=== PATIENT | male | born 1975 | race Caucasian/White ===

== ENCOUNTER 2021-10-18 21:06 | Emergency (ER) | payer SELFPAY ==
[2021-10-18 21:11] VITALS: BP 147/88; PULSE 127; RESP 28; TEMP 36; O2SAT 96
--- NOTE | 2021-10-18 21:15 | DI.RAD_ITS ---
Exam(s) XR FOOT RT COMPLETE EXAM: XR FOOT RT COMPLETE CLINICAL HISTORY: Foot Injury, R/O Fracture. TECHNIQUE: 2D digital imaging was performed. COMPARISON: No exams were available for comparison FINDINGS: 3 views There is some dorsal soft tissue swelling. There are no fractures nor diastasis of the Lisfranc join t. No osseous lesions. No erosions. No radiopaque foreign body. IMPRESSION: No significant findings. DATA REPOSITORY: RADIATION DOSE DELIVERED:
--- NOTE | 2021-10-18 21:32 | ED.GENADUL_ITS ---
Discharge Plan Disposition Patient Disposition: HOME Condition: Stable Discharge Details Clinical Impression: Right foot sprain, Contusion Primary Care Provider: Unknown,Unknown ED Provider: Dena Walsh Home Meds and New Rx's Prescriptions: No Action No Known Home Meds Discharge Instructions Instructions: Contusion in Adults (ED), Foot Sprain (ED) Additional Instructions: At this time there is no evidence for broken bones or fractures on the x-rays. I do suspect that you bruised your foot and or sprained it. Please use the postop shoe, crutches and an Roger wrap as tolerated. Weightbearing advance as tolerated. Rest, ice, compression, elevation while sitting or lying down. Please take Tylenol or Ibuprofen with food every 4-6 hours as needed for pain a nd swelling. Discharge Data Discharge Date/Time-TO BE ENTERED AT DEPARTURE: 10/18/21 22:14 Medical Decision Making Ice pack given by balance staff inspector, x-ray foot ordered ibuprofen 600 mg p.o. Imaging protocol: Radiologic exam of the Right foot. Views: 3 or more views. COMPARISON: No relevant prior studies available. FINDINGS: Bones/joints: Normal. Soft tissues: Soft tissue swelling in distal foot. IMPRESSION: Soft tissue swelling. Patient given postop shoe, Roger wrap patient presents with his own crutches. D iscussed home care RICE procedures. Verbalized understanding. HPI General Mode of arrival: wheelchair . Date/Time Provider Initiated Documentation: 10/18/21 21:22 . Limitations to Documentation: no limitations and other . Information obtained by: patient, family and RN notes reviewed . HPI Narrative: 45-year-old male presents to the ER with chief complaint of right foot pain status post kicking a exercise bike prior to arrival. He does have some dorsal midfoot swelling and ecchymosis noted. Distal cap refill less than 2 seconds. No tenderness with palpation of the ankle or distal tib-fib. He does appear very anxious on initial exam. He does endorse drinking alcohol prior to arrival did not take any Tylenol or ibuprofen. Past medical history includes bipolar, PTSD. Related Data Home Medications Medication Instructions Recorded Confirmed Unknown [No Known Home Meds] 10/18/21 10/18/21 Allergies Allergy/AdvReac Type Severity Reaction Status Date / Time No Known Allergies Allergy Unverified 10/18/21 21:13 General Stated Complaint: Orthopedic ALEXA: 4 Review of Systems Musculoskeletal Musculoskeletal: Reports as per HPI, Reports arthralgias and Reports joint swelling Psychiatric Psychiatric: Reports anxiety PFSH All Active Problems (Updated 10/18/21 @ 22:01 by Dena Walsh NP) Right foot sprain (Acute) Contusion (Acute) Medical History Bipolar 1 disorder PTSD (post-traumatic stress disorder) Social History Smoking/Tobacco Use Status: Never Smoking risk assessment performed?: Yes Alcohol Intake: current Alcohol Intake frequency: a few times a month Alcohol type: hard liquor Substance use type: does not use Do you feel safe at home: Yes Do you feel safe in your relationship?: Yes Exam Extrem Right lower extremity: ankle Details: normal to inspection; no tenderness and no swelling and foot Details: abnormal to inspection (Dorsal swelling to mid-foot, ) and tenderness Location: of the dorsal foot and of the mid foot Ankle/foot/toe images: 1. Dorsal swelling and ecchymosis noted tenderness with palpation no obvious deformity distal cap refill less than 2 sec. CMS intact. No tenderness with palpation to the ankle or distal tib-fib or knee. Course Vital Signs Vital signs: Vital Signs Temperature 36.0 C L 10/18/21 21:11 Pulse 127 H 10/18/21 21:11 Respiratory Rate 28 H 10/18/21 21:11 Blood Pressure 147/88 H 10/18/21 21:11 Pulse Oximetry 96 10/18/21 21:11 Temperature 36.0 C L 10/18/21 21:11 Temperature Source Skin 10/18/21 21:11 Pulse 127 H 10/18/21 21:11 Respiratory Rate 28 H 10/18/21 21:11 Respiratory Effort Non-Labored 10/18/21 21:14 Blood Pressure 147/88 H 10/18/21 21:11 Pulse Oximetry 96 10/18/21 21:11 Pain Level 8 10/18/21 21:11 PAWSS Have you Been Recently Intoxicated or Drunk Within the Last 30 days?: No Have you Ever Experienced Previous Episodes of Alcohol Withdrawal?: No Have you ever Experienced Withdrawal Seizures?: No Have you ever Experienced Delirium Tremens(DT)s?: No Have you ever undergone Alcohol Rehabilitation Treatment (i.e, inpt ot outpatient treatment programs)?: No Have you ever Experienced Blackouts?: No Have you ever Combined Alcohol with other Downers within the last 90 days?: No Have you ever Combined Alcohol with any other Substance of Abuse during the last 90 days?: No Positive Blood Alcohol level on Presentation? [PCS.BAL]: No Evidence of Increased Autonomic Activity (i.e. HR>120, tremor, sweating, agitation, nausea)?: No Result: 0
[2021-10-18] MEDS: Ibuprofen 600 MG TAB PO (21:38)
--- NOTE | 2021-10-18 21:57 | DI.VRAD_ITS ---
PROCEDURE INFORMATION: Exam: XR Right Foot Exam date and time: 10/18/2021 9:40 PM Age: 45 years old Clinical indication: Other: Foot injury, R/O FX TECHNIQUE: Imaging protocol: Radiologic exam of the Right foot. Views: 3 or more views. COMPARISON: No relevant prior studies available. FINDINGS: Bones/joints: Normal. Soft tissues: Soft tissue swelling in distal foot. IMPRESSION: Soft tissue swelling. Dictated and Authenticated by: Raymond De La Rosa MD. Ordering:GREGORY Fernandes MD
[2021-10-18 22:13] VITALS: PULSE 111; RESP 20; O2SAT 98
== END 2021-10-18 22:14 | disposition home or self-care (01) ==
PROVIDERS: Emergency Provider Registered Nurse Emergency
DX: S93.601A Unspecified sprain of right foot, initial encounter (principal); W22.09XA Striking against other stationary object, initial encounter
CPT/HCPCS: 99283; 73630

== ENCOUNTER 2023-10-01 13:48 | Emergency (ER) | payer MEDICAID, SELFPAY ==
[2023-10-01 14:07] VITALS: BP 142/86; PULSE 88; RESP 18; TEMP 37.2; O2SAT 99
--- NOTE | 2023-10-01 16:21 | ED.GENADUL_ITS ---
Discharge Plan Disposition Patient Disposition: Home Condition: Stable Discharge Details Clinical Impression: Rash of finger Primary Care Provider: Unknown,Unknown ED Provider: Indiana Oakley Home Meds and New Rx's Prescriptions: New cephalexin 500 mg capsule 500 mg PO QID Qty: 20 0RF Discharge Instructions Instructions: Skin Rash ED Additional Instructions: Drink at least 6 to 8 glasses of water daily to stay well-hydrated Keep finger clean and dry wash daily with warm soapy water rinse completely pat dry gently can apply thin layer of bacitracin ointment and dry dressing to protect Take antibiotics as prescribed even if you feel better See your primary care provider I Referrals: Unknown,Unknown [Primary Care Provider] - (Establish with primary care provider for chronic disease evaluation and management) HPI General Mode of arrival: ambulatory . Date/Time Provider Initiated Documentation: 10/01/23 15:17 . Limitations to Documentation: no limitations . Information obtained by: patient . HPI Narrative: This is a 47-year-old male patient past medical history significant for bipolar disorder presents to the emergency department for complaints of right ring finger rash/swelling/pain. He denies any fever or signs of systemic illness. He denies any trauma to the area. He has tried multiple remedies including hydrogen peroxide, antibiotic ointment, with no improvement in his symptoms. He denies any similar history. Also during intake he reports that intermittently he has noted blood in his stool but not recently and that occasionally he gets headaches that start at the base of his head and wraps around but no headache currently. He denies any chest pain shortness of breath and dizziness nausea vomiting or diarrhea. He states he has been eating and drinking normally Related Data Home Medications Medication Instructions Recorded Confirmed cephalexin 500 mg capsule 500 mg PO QID #20 caps 10/01/23 Previous Rx's Medication Instructions Recorded cephalexin 500 mg capsule 500 mg PO QID #20 caps 10/01/23 Allergies Allergy/AdvReac Type Severity Reaction Status Date / Time No Known Allergies Allergy Unverified 10/01/23 14:10 General Stated Complaint: GenMedical ALEXA: 3 Review of Systems Narrative: 10 point review of systems all negative except positives per HPI Exam Narrative Exam Narrative: Anxious appearing gentleman of stated age in no acute distress he is thin skin is pink warm dry well-perfused head is atraumatic eyes nonicteric noninjected EOMs intact oral mucosas moist neck with full range of motion no JVD cardiovascular regular rate and rhythm respirations are even and unlabored abdomen is benign he moves all extremities he has got no peripheral edema dorsal aspect of his right ring finger with excoriation most consistent with a contact dermatitis/it extends from the base of his finger to his DIP joint. He has full range of motion of his finger full strength palmar aspect of his finger is u nremarkable. Sensation is intact distally. Good CSM T's distally Course Vital Signs Vital signs: Vital Signs Temperature 37.2 C 10/01/23 14:07 Pulse 88 10/01/23 14:07 Respiratory Rate 18 10/01/23 14:07 Blood Pressure 142/86 H 10/01/23 14:07 Pulse Oximetry 99 10/01/23 14:07 Temperature 37.2 C 10/01/23 14:07 Temperature Source Temporal Artery Scan 10/01/23 14:07 Pulse 88 10/01/23 14:07 Respiratory Rate 18 10/01/23 14:07 Blood Pressure 142/86 H 10/01/23 14:07 Blood Pressure Position Sitting 10/01/23 14:07 Pulse Oximetry 99 10/01/23 14:07 Oxygen Delivery Method Room Air 10/01/23 14:07 Oxygen Flow Rate 0 10/01/23 14:07 Medical Decision Making Is a 47-year-old male patient who comes in with various complaints but active complaint is excoriation to his right ring finger. Physical exam appears more like a contact dermatitis than a cellulitis but he does have some open areas that he is picking at and I am concerned that it may become infected. I did ask him to stop applying different remedies to the finger as this could be worsening the irritation. We will apply thin layer of antibiotic ointment and dry dressing to protect. I will give him a short course of cephalexin. Tetanus will be updated Patient currently denies any blood in his stool his vital signs are stable with a pulse in the 80s and systolic blood pressure 142 he reports of dizziness or positional. No further evaluation warranted at this time patient to follow-up with primary care provider for further recommendations Patient also currently denies headache at this time. No further evaluation warranted at this time Medical Records Medical records reviewed: Yes I reviewed the patient's medical records. Quality:SDOH Health Related Social Needs: No Data to Display PFSH All Active Problems (Updated 10/01/23 @ 16:28 by Indiana Oakley NP) Rash of finger (Acute) Medical History Bipolar 1 disorder PTSD (post-traumatic stress disorder) Social History Smoking/Tobacco Use Status: Never Smoking risk assessment performed?: Yes Alcohol Intake: current Alcohol Intake frequency: a few times a month Alcohol type: hard liquor Substance use type: does not use Do you feel safe at home: Yes Do you feel safe in your relationship?: Yes
[2023-10-01 16:50] VITALS: BP 142/86; PULSE 88; RESP 18; RESP 20; TEMP 37.2; O2SAT 99
[2023-10-01 16:51] VITALS: BP 142/86; PULSE 88; RESP 20; TEMP 37.2; O2SAT 99
== END 2023-10-01 16:39 | disposition home or self-care (01) ==
PROVIDERS: Emergency Provider Nurse Practitioner Acute Care
DX: R21 Rash and other nonspecific skin eruption (principal); R51.9 Headache, unspecified
CPT/HCPCS: 90471; 90715; 99284; 99283

== ENCOUNTER 2023-12-15 17:41 | Emergency (ER) | payer MEDICAID, SELFPAY ==
[2023-12-15] VITALS (16 sets, daily range): BP systolic 135–147; BP diastolic 83–98; PULSE 63–91; RESP 15–25; TEMP 36.2–36.8; O2SAT 96–99
[2023-12-15 18:31] LABS: Abs Immature Grans 0.06 10^3/uL (0.0-0.06); Absolute Basophil Count 0.08 10^3/uL (0.0-0.2); Basophils % 0.5 %; Eosinophils % 0.9 %; HCT 48.7 % (40.0-50.0); HGB 16.6 g/dL (13.5-17.5); Immature Grans % 0.4 %; Lymphocytes % 13.8 %; MCHC 34.1 % (32.0-36.0); MCV 94 fL (80-95); MPV 9.6 fL (8.0-11.0); Monocytes % 3.5 %; Neutrophils % 80.9 %; Platelet Count 361 10^3/uL (130-400); RBC 5.19 10^6/uL (4.36-5.78); RDW 12.7 % (11.8-14.1); RDW-SD 43.9 fL; WBC 15.92 10^3/uL (4.4-10.8)
[2023-12-15] MEDS: Famotidine 20 MG/2 ML VIAL IVP (18:31)
[2023-12-15] MEDS: Ondansetron 4 MG/2 ML VIAL IVP (18:31)
[2023-12-15] MEDS: Normal Saline 1,000 ML 1000 ML IV (18:31)
[2023-12-15 18:32] LABS: Absolute Eosinophil Count 0.14 10^3/uL (0.0-0.7); Absolute Monocyte Count 0.56 10^3/uL (0.1-0.8); Absolute Neutrophil Count 12.88 10^3/uL (1.2-6.7)
[2023-12-15 18:46] LABS: ALT 23 U/L (16-63); AST 21 U/L (15-37); Albumin 4.9 g/dL (3.4-5.0); Alkaline Phosphatase 88 U/L (46-116); Anion Gap 11.8 mmol/L (3-11); BUN 18 mg/dL (7-18); Bilirubin, Total 0.39 mg/dL (0.2-1.0); CO2 25.2 mmol/L (21.0-32.0); CREATININE 1.1 mg/dL (0.70-1.30); Calcium 9.8 mg/dL (8.5-10.1); Chloride 104 mmol/L (98-107); Estimated GFR 82.29 (mL/min/1.73m2); Glucose 92 mg/dL (74-106); Lipase 26 U/L (16-77); Potassium 4.1 mmol/L (3.5-5.1); Sodium 141 mmol/L (136-145); Total Protein 8.2 g/dL (6.4-8.2)
--- NOTE | 2023-12-15 19:08 | ED.GENADUL_ITS ---
Discharge Plan Disposition Patient Disposition: Home Condition: Improving Discharge Details Clinical Impression: Gastritis Primary Care Provider: Unknown,Unknown ED Provider: Yoshi Infante Home Meds and New Rx's Prescriptions: New pantoprazole 40 mg tablet,delayed release (DR/EC) 40 mg PO DAILY 15 Days Qty: 15 0RF Discharge Instructions Instructions: Gastritis Additional Instructions: Please follow-up with your primary care physician and discuss need for follow-up with licensed marriage and family therapist to consider endoscopy and H. pylori testing. Zantac/ranitidine has been taken off the market therefore we will start you on a prescription of pantoprazole. HPI General Date/Time Provider Initiated Documentation: 12/15/23 17:44 . HPI Narrative: 47-year-old male presents with nausea and dry heaving in the setting of taking a couple shots of peppermint schnapps. Denies chest pain or shortness of breath. Denies history of pancreatitis. Also has a couple lesions on his skin with some purulent discharge superficially on his wrist and his left shoulder. Related Data Home Medications ?Medication ?Instructions ?Recorded ?Confirmed pantoprazole 40 mg tablet,delayed 40 mg PO DAILY 15 days #15 tabs 12/15/23 release Previous Rx's ?Medication ?Instructions ?Recorded pantoprazole 40 mg tablet,delayed 40 mg PO DAILY 15 days #15 tabs 12/15/23 release Allergies Allergy/AdvReac Type Severity Reaction Status Date / Time No Known Allergies Allergy Unverified 12/15/23 18:10 General Stated Complaint: Nausea/Vomit/Diar ALEXA: 3 Exam Narrative Exam Narrative: Alert oriented interactive Moist mucous membranes tongue secretions normal voice Speaking full sentences no respiratory distress Abdomen soft nontender nondistended Moving all extremities without deficits Shallow-based ulcer subacute appearing to right wrist volar aspect 1 cm in diameter with some purulent material at base nonfluctuant, no crepitus no lymphangitic streaking Warm well-perfused extremities soft compartments sensate Course Vital Signs Vital signs: Vital Signs Temperature 36.8 C 12/15/23 17:45 Pulse 68 12/15/23 17:45 Respiratory Rate 18 12/15/23 17:45 Pulse Oximetry 97 12/15/23 17:45 Temperature 36.2 C L 12/15/23 18:28 Temperature Source Temporal Artery Scan 12/15/23 18:28 Pulse 91 H 12/15/23 18:28 Respiratory Rate 18 12/15/23 18:28 Respiratory Effort Normal, Non-Labored 12/15/23 18:28 Blood Pressure Position Sitting 12/15/23 17:45 Pulse Oximetry 97 12/15/23 17:45 Oxygen Delivery Method Room Air 12/15/23 17:45 Oxygen Flow Rate 96 12/15/23 18:28 Pain Level 6 12/15/23 18:28 Lab/Test Results Lab/Test Results: Laboratory Tests Range/Units 12/15/23 18:24 WBC (4.4-10.8) 10^3/uL 15.92 H RBC (4.36-5.78) 10^6/uL 5.19 Hgb (13.5-17.5) g/dL 16.6 Hct (40.0-50.0) % 48.7 MCV (80-95) fL 94 MCH (27.0-33.0) pg 32.0 MCHC (32.0-36.0) % 34.1 RDW (11.8-14.1) % 12.7 Plt Count (130-400) 10^3/uL 361 MPV (8.0-11.0) fL 9.6 Immature Gran % % 0.4 Neutrophils % % 80.9 Lymphocytes % % 13.8 Monocytes % % 3.5 Eosinophils % % 0.9 Basophils % % 0.5 Nucleated RBC % (0.0-0.3) % 0.0 Absolute Neutrophils (1.2-6.7) 10^3/uL 12.88 H Absolute Lymphocytes (1.2-3.4) 10^3/uL 2.20 Absolute Monocytes (0.1-0.8) 10^3/uL 0.56 Absolute Eosinophils (0.0-0.7) 10^3/uL 0.14 Absolute Basophils (0.0-0.2) 10^3/uL 0.08 Sodium (136-145) mmol/L 141 Potassium (3.5-5.1) mmol/L 4.1 Chloride (98-107) mmol/L 104 Carbon Dioxide (21.0-32.0) mmol/L 25.2 Anion Gap (3-11) mmol/L 11.8 H BUN (7-18) mg/dL 18 Creatinine (0.70-1.30) mg/dL 1.1 Est GFR (CKD-EPI 2020) (mL/min/1.73m2) 82.29 Glucose (74-106) mg/dL 92 Calcium (8.5-10.1) mg/dL 9.8 Total Bilirubin (0.2-1.0) mg/dL 0.39 AST (15-37) U/L 21 ALT (16-63) U/L 23 Alkaline Phosphatase (46-116) U/L 88 Total Protein (6.4-8.2) g/dL 8.2 Albumin (3.4-5.0) g/dL 4.9 Lipase (16-77) U/L 26 Medical Decision Making 47-year-old male presents with nausea and dry heaving in the setting of taking a couple shots of peppermint schnapps. Denies chest pain or shortness of breath. Denies history of pancreatitis. Also has a couple lesions on his skin with some purulent discharge superficially on his wrist and his left shoulder. Hemodynamically stable afebrile nontoxic nonperitoneal dry heaving without actual vomiting; Shallow-based ulcer subacute appearing to right wrist volar aspect 1 cm in diameter with some purulent material at base nonfluctuant, no crepitus no lymphangitic streaking, a similar smaller lesion on his left shoulder nonpurulent. Consider gastritis versus early pancreatitis lower suspicion for cholecystitis or biliary colic low suspicion for atypical ACS aortic pathology or PE low suspicion for bowel obstruction enteritis or colitis. Superficial skin infection no evidence of abscess or necrotizing infection. Will administer GI cocktail including Mylanta viscous lidocaine famotidine Zof ran fluids basic labs lipase, will likely start patient on oral antibiotics once GI symptoms have improved 21: 01 resting more comfortably after medication. Labs and imaging unremarkable. Likely gastritis versus esophagitis. Discussed with patient the need for him to follow-up closely with primary care and possible GI specialist for endoscopy or H. pylori testing. Patient endorses that ranitidine has helped him in the past. However ranitidine has been removed from the market. Will initiate pantoprazole. Quality:SDOH Health Related Social Needs: No Data to Display PFSH All Active Problems (Updated 12/15/23 @ 21:02 by Yoshi Infante MD) Gastritis (Acute) Medical History Bipolar 1 disorder PTSD (post-traumatic stress disorder) Social History Smoking/Tobacco Use Status: Never Smoking risk assessment performed?: Yes Alcohol Intake: current Alcohol Intake frequency: a few times a month Alcohol type: hard liquor Substance use type: does not use and former substance user Details: quit 4 years ago cold turkey Housing: apartment Do you feel safe at home: Yes Do you feel safe in your relationship?: Yes
--- NOTE | 2023-12-15 19:45 | DI.CT_ITS ---
Exam(s) CT ABDOMEN PELVIS W EXAM: CT ABDOMEN PELVIS W CLINICAL HISTORY: abd pain, nause vomiting. TECHNIQUE: Imaging Protocol: Axial computed tomography images with coronal and sagittal reformatted images were created and reviewed CONTRAST MATERIAL: Intravenous: Omnipaque-350 100cc Oral: None COMPARISON: No exams were available for comparison FINDINGS: VISUALIZED LUNG BASES: There is a partially included 8 mm nodule in the left lung base-left lower lob e. No pleural effusions.. ABDOMEN: There is no ascites. LIVER: There are no focal hepatic lesions evident. No dilated intrahepatic ducts. GALLBLADDER/BILIARY: No obvious gallbladder pathology. CBD is not dilated. PANCREAS: No evidence of pancreatic mass nor dilatation of the pancreatic duct. SPLEEN: Spleen is not enlarged. No obvious intrasplenic lesions. Splenic and portal veins are paten t. ADRENALS: There are no significant adrenal masses. KIDNEYS:No cysts evident. No solid renal masses. No calculi nor hydronephrosis.. ABDOMINAL AORTA: Abdominal aorta is not enlarged. LYMPH NODES:There is no retroperitoneal nor paraaortic adenopathy. ABDOMINAL WALL: No evidence of significant anterior abdominal wall nor inguinal hernia. GI: There is no evidence of bowel obstruction, free air, nor abscess. PELVIS: GI: No evidence of appendicitis.No evidence of sigmoid diverticulitis. LYMPH NODES: There is no intrapelvic nor inguinal adenopathy. REPRODUCTIVE: Prostate size upper normal. Seminal vesicles unremarkable. URINARY BLADDER: No calculi nor obvious masses evident OSSEOUS: No fractures and no significant osseous lesions. There are bilateral pars defects at L5. No associated listhesis nor disc space narrowing. IMPRESSION: 1. No acute findings in the abdomen and pelvis. 2. Bilateral spondylolysis at L5 without evidence of spondylolisthesis nor disc space narrowing. 3. There is a partially included nodule noted in the left lung lower lobe measuring 8 mm (image 1). No pleural effusions. RADIATION DOSE DELIVERED: 205.07mGy.cm Total DLP DATA REPOSITORY: All CT scans at this facility are submitted to the National Radiology Data Registry (NRDR) Dose Index Registry (DIR) with the [employer] (A[employer]). RADIATION OPTIMIZATION: All CT scans at this facility use at least one of these dose optimization te chniques: automated exposure control; mA and/or kV adjustment per patient size (includes targeted exa ms where dose is matched to clinical indication); or iterative reconstruction.
[2023-12-15] MEDS: Normal Saline - Diluent 50 ML VIAL IJ (19:56)
[2023-12-15] MEDS: Omnipaque 350 MG/ML 100 ML BTL 80 ML IJ (19:57)
--- NOTE | 2023-12-15 20:37 | DI.VRAD_ITS ---
PROCEDURE INFORMATION: Exam: CT Abdomen And Pelvis With Contrast Exam date and time: 12/15/2023 8:02 PM Age: 47 years old Clinical indication: Nausea and vomiting; Abdominal pain TECHNIQUE: Imaging protocol: Computed tomography of the abdomen and pelvis with contrast. Contrast material: OMNIPAQUE 350; Contrast volume: 80 ml; Contrast route: INTRAVENOUS (IV); COMPARISON: No relevant prior studies available. FINDINGS: Lungs: Lung bases clear. Liver: Normal appearing liver. Gallbladder and biliary ducts: Gallbladder partially collapsed. No calcified gallstones seen. No biliary dilatation. Pancreas: Normal appearing pancreas. Spleen: Normal appearing spleen. Adrenal glands: Normal appearing adrenal glands. Kidneys and ureters: Normal appearing kidneys. No hydronephrosis. Stomach and bowel: No oral contrast. Stomach partially decompressed. No small bowel dilatation to suggest obstruction. Normal-appearing colon. No evidence of diverticulitis or colitis. Appendix: Appendix partially obscured but normal in caliber and appearance through its visualized portion. Intraperitoneal space: No gross ascites or free air. Vasculature: Normal caliber abdominal aorta. Lymph nodes: No pathologically enlarged mesenteric, retroperitoneal, or pelvic sidewall lymph nodes. Urinary bladder: Normal appearing urinary bladder. Reproductive: Normal-appearing prostate gland and seminal vesicles. Bones/joints: Bilateral spondylolysis at L5 but no associated spondylolisthesis. Soft tissues: No significant ventral or inguinal hernia. IMPRESSION: 1. No acute bowel pathology demonstrated. 2. Bilateral spondylolysis at L5 but no associated spondylolisthesis. Dictated and Authenticated by: Sanjiv Rose MD. Ordering:DALIA Belle MD
== END 2023-12-15 21:07 | disposition home or self-care (01) ==
PROVIDERS: Emergency Provider Emergency Medicine
DX: R11.2 Nausea with vomiting, unspecified (principal); K29.70 Gastritis, unspecified, without bleeding
CPT/HCPCS: 36415; 80053; 83690; 96361; 96374; 96375; 99285; 74177; 85025; 99284; J2405; J3490

== ENCOUNTER 2024-06-10 00:48 | Outpatient (CLI) | payer MEDICAID, SELFPAY ==
--- NOTE | 2024-06-10 | DI.RAD_ITS ---
Exam(s) XR CERVICAL SPINE COMP 4-5V EXAM: XR CERVICAL SPINE COMP 4-5V CLINICAL HISTORY: CHRONIC NECK PAIN WITH B/L UE RADIATION, M54.2 CERVICALGIA, EVAL LISTHESIS. TECHNIQUE: 2D digital imaging was performed. Five views were performed. COMPARISON: No exams were available for comparison FINDINGS: BONES: No fracture or destructive lesion. Vertebral bodies are unremarkable. Facet degenerative vipin nges are noted throughout. There is mild bilateral neural foraminal narrowing at multiple levels. DISKS: Mild narrowing of the C5-6 and C7-6 7 disc spaces. Endplate osteophytes are noted from C3-4 t hrough C7 T1. ALIGNMENT: There is some reversal of the normal cervical lordosis in the mid cervical region likely s econdary to facet degenerative changes. The odontoid and atlantoaxial articulations are normal. SOFT TISSUE: Normal. The lung apices are clear. IMPRESSION: Degenerative disc changes and facet degenerative changes cause bilateral multilevel neural foraminal narrowing. DATA REPOSITORY: RADIATION DOSE DELIVERED:
--- NOTE | 2024-06-10 12:09 | DI.RAD_ITS ---
Exam(s) XR CHEST 2V PA LATERAL EXAM: XR CHEST 2V PA LATERAL CLINICAL HISTORY: HX TUBERCULOSIS, Z86.11, TREATED 2015, ? CURRENT PULMONARY TB TECHNIQUE: 2D digital imaging was performed. Two views. COMPARISON: No exams were available for comparison FINDINGS: HEART: Normal size. Aorta: Not dilated. PULMONARY VASCULATURE: Normal. MEDIASTINUM: Unremarkable. No visible adenopathy. No calcifications. LUNGS: Clear. PLEURAL SPACE: No pleural effusion or pneumothorax. BONE:Unremarkable for age. SOFT TISSUES: Unremarkable. IMPRESSION: No acute abnormality. DATA REPOSITORY: RADIATION DOSE DELIVERED:
== END 2024-06-10 01:08 ==
PROVIDERS: PCP Family Medicine; Visit Provider Family Medicine
DX: M50.022 Cervical disc disorder at C5-C6 level with myelopathy (principal); Z86.11 Personal history of tuberculosis; M50.023 Cervical disc disorder at C6-C7 level with myelopathy; M99.61 Osseous and subluxation stenosis of intervertebral foramina of cervical region
CPT/HCPCS: 71046; 72050

== ENCOUNTER 2024-09-30 00:17 | Outpatient (CLI) | payer MEDICAID, SELFPAY ==
--- NOTE | 2024-09-30 | DI.RAD_ITS ---
Exam(s) XR SHOULDER RT COMPLETE 2+V EXAM: XR SHOULDER RT COMPLETE 2+V CLINICAL HISTORY: Rt shoulder/clavicle pain, mild rt clavicle swelling. TECHNIQUE: 2D digital imaging was performed of the right shoulder. Five images were obtained. AP, Grashey, Y-view and axillary views were obtained. COMPARISON: No exams were available for comparison FINDINGS: BONES: No acute fracture is present. No bony destructive lesion is seen. JOINTS: No dislocation present. SOFT TISSUE: Normal. IMPRESSION: Unremarkable radiographs of the right shoulder. DATA REPOSITORY: RADIATION DOSE DELIVERED:
--- NOTE | 2024-09-30 | DI.RAD_ITS ---
Exam(s) XR CLAVICLE RT EXAM: XR CLAVICLE RT CLINICAL HISTORY: Rt clavicle pain, mild tenderness,M89.8xa TECHNIQUE: 2D digital imaging was performed of the right clavicle. Two images were obtained. AP and axial views were obtained. COMPARISON: No exams were available for comparison FINDINGS: BONES: No acute fracture is present. No bony destructive lesion is seen. JOINTS: No dislocation present. SOFT TISSUE: Normal IMPRESSION: Unremarkable radiographs of the right clavicle. DATA REPOSITORY: RADIATION DOSE DELIVERED:
== END 2024-09-30 00:37 ==
LOC: DI 00:17
PROVIDERS: PCP Family Medicine; Visit Provider Family Medicine
DX: M89.8X1 Other specified disorders of bone, shoulder (principal)
CPT/HCPCS: 73000; 73030

== ENCOUNTER 2024-12-06 01:16 | Outpatient (CLI) | payer OTHER, SELFPAY ==
--- NOTE | 2024-12-06 10:49 | DI.RAD_ITS ---
Exam(s) XR HIP RT AP LAT ONLY EXAM: XR HIP RT AP LAT ONLY CLINICAL HISTORY: BECK HIP AND KNEE PAIN, Z02.71, DISABILITY DETERMINATION. TECHNIQUE: 2D digital imaging was performed. COMPARISON: No exams were available for comparison FINDINGS: 3 views No evidence right hip fracture nor abnormal soft tissue densities. No joint space narrowing. No osteophytes. There 2 findings in the right femoral neck. There is a small round oval lucency with peripheral sclerosis consistent with a synovial herniation pit. There is also a small benign-appearing bone island. There is no obvious evidence of NYA. IMPRESSION: There is a small synovial herniation pit in the anterosuperior aspect of the femoral neck. This benign finding is usually caused by mechanical pressure from the hip joints thick anterior capsule pushing synovial joint aligning through a small cortical defect. Although usually asymptomatic this finding can be associated with hip pain, especially if there is underlying femoral acetabular impingement. DATA REPOSITORY: RADIATION DOSE DELIVERED:
--- NOTE | 2024-12-06 10:49 | DI.RAD_ITS ---
Exam(s) XR KNEE RT 3V AP,LAT,KYRA XR KNEE LT 3V AP,LAT,KYRA EXAM: XR KNEE RT 3V AP,LAT,KYRA CLINICAL HISTORY: BILATERAL HIP AND KNEE PAIN, DISABILITY DETERMINATION, Z02.71. TECHNIQUE: 2D digital imaging was performed. Three views of both knee. COMPARISON: CR XR KNEE LT 3V AP,LAT,KYRA from 12/06/2024 FINDINGS: BONES: No acute fracture is present. No bony destructive lesion is seen. JOINTS: The knee is normally aligned. No joint effusion is seen. Joint spaces are maintained. There is minimal spurring at the articular aspect of the patella bilaterally. SOFT TISSUE: Normal. IMPRESSION: Minimal degenerative changes of the patellofemoral joints. DATA REPOSITORY: RADIATION DOSE DELIVERED:
--- NOTE | 2024-12-06 10:49 | DI.RAD_ITS ---
Exam(s) XR HIP LT COMPLETE AP PELVIS EXAM: XR HIP LT COMPLETE AP PELVIS CLINICAL HISTORY: BECK HIP AND KNEE PAIN, DISABILITY DETERMINATION, Z02.71. TECHNIQUE: 2D digital imaging was performed. COMPARISON: No exams were available for comparison FINDINGS: 3 views No evidence of pelvic nor hip fractures. No evidence of vascular necrosis. No obvious degenerative changes. Additional frog lateral view of the left hip reveals no osteophytes. Bone density normal. No osseous lesions. IMPRESSION: Significant radiograph findings in the pelvis and hips. DATA REPOSITORY: RADIATION DOSE DELIVERED:
== END 2024-12-06 01:36 ==
LOC: DI 01:16
PROVIDERS: PCP Family Medicine; Visit Provider Pediatrics Pediatric Rheumatology
DX: Z02.71 Encounter for disability determination (principal)
CPT/HCPCS: 73562; 73502